=== PATIENT | male | born 1985 | race Caucasian/White ===

== ENCOUNTER 2023-05-08 06:31 | Day surgery (SDC) | payer OTHER ==
[2023-05-07 13:20] VITALS: BMI 54.2
[2023-05-08] MEDS ORDERED: hydrALAZINE 20 MG/ML VIAL ONE (08:19)
[2023-05-08] MEDS ORDERED: Propofol 500 MG/50 ML VIAL ONE (09:14)
[2023-05-08] MEDS ORDERED: SUGAMMADEX SODIUM 200 MG/2 ML VIAL ONE ×2 (09:14→10:36)
[2023-05-08] MEDS ORDERED: fentaNYL PF 100 MCG/2 ML SYRINGE ONE (09:14)
[2023-05-08] MEDS ORDERED: CEFAZOLIN 2 GM VIAL ONE (09:29)
[2023-05-08] MEDS ORDERED: Sodium Chloride 0.9% 100 ML ONE (09:29)
[2023-05-08] MEDS ORDERED: Succinylcholine 200 MG/10 ml SYRINGE FS ONE (09:43)
[2023-05-08] MEDS ORDERED: Albuterol HFA (OR) 200 PUFF INH ONE (09:43)
[2023-05-08] MEDS ORDERED: PHENYLEPHRINE-NS 100 MCG/ML 10 ML SYRINGE ONE (09:43)
[2023-05-08] MEDS ORDERED: PROPOFOL 200 MG/20 ML VIAL ONE (09:43)
[2023-05-08] MEDS ORDERED: Lidocaine 1% PF 5 ML VIAL ONE (09:43)
[2023-05-08] MEDS ORDERED: Ondansetron PF 4 MG/2 ML Vial ONE (09:43)
[2023-05-08] MEDS ORDERED: Rocuronium Bromide 10 MG/ML (10ML VIAL) ONE (09:43)
[2023-05-08] MEDS ORDERED: Dexamethasone 20 MG/5 ML VIAL ONE (09:43)
[2023-05-08] MEDS ORDERED: Lidocaine 1% (PF) 30 ML VIAL ONE (09:49)
[2023-05-08] MEDS ORDERED: EPINEPHrine 1 MG/ML AMP ONE (09:49)
[2023-05-08] MEDS ORDERED: Ciprofloxacin 0.2% Otic (0.25ML CONTAINER) ONE ×2 (09:49→10:14)
[2023-05-08] MEDS ORDERED: Bacitracin Zinc Ointment 30 gm TUBE ONE (10:14)
[2023-05-08] MEDS ORDERED: fentaNYL 50 mcg/mL 1 mL Vial ONE (11:08)
[2023-05-08] MEDS ORDERED: HYDROcodone/Acetaminophen 5/325 mg Tablet ONE (12:00)
== END 2023-05-08 12:22 | disposition home or self-care (01) ==
LOC: SDC 06:31
PROVIDERS: ATTEND Otolaryngology Plastic Surgery within the Head & Neck
PROC: 09Q87ZZ Repair Left Tympanic Membrane, Via Natural or Artificial Opening (ICD-10-PCS; principal; 2023-05-08)
DX: S09.22XA Traumatic rupture of left ear drum, initial encounter (principal); H72.92 Unspecified perforation of tympanic membrane, left ear; H90.2 Conductive hearing loss, unspecified; I10 Essential (primary) hypertension; Z90.49 Acquired absence of other specified parts of digestive tract; Z88.5 Allergy status to narcotic agent; Z79.899 Other long term (current) drug therapy; X58.XXXA Exposure to other specified factors, initial encounter
CPT/HCPCS: J0171; J0360; J1100; J2001; J2405; J2704; J3010; J3490

== ENCOUNTER 2023-07-05 09:18 | Outpatient (CLI) | payer OTHER | END 2023-07-05 09:19 | disposition home or self-care (01) | LOC: DTY/OP 09:18 | PROVIDERS: ATTEND Family Medicine | DX: E66.01 Morbid (severe) obesity due to excess calories (principal); Z68.43 Body mass index [BMI] 50.0-59.9, adult | CPT/HCPCS: 97802 ==